=== PATIENT | male | born 1990 | race African-American/Black ===

== ENCOUNTER 2017-06-03 14:19 | Emergency (ER) | payer OTHER ==
[~2017-06-03] VITALS: Ht 182.9 cm; Wt 71.0 kg
[2017-06-03 14:21] VITALS: Ht 182.9 cm; Wt 71.0 kg
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
[2017-06-03] MEDS ORDERED: CIPR7.5D4 RIGHT EAR (16:52)
[2017-06-03] MEDS ORDERED: ELIM TOP (16:54)
[2017-06-03 17:25] VITALS: BP 120/61; PULSE 64; RESP 18; TEMP 98
== END 2017-06-03 17:26 | disposition home or self-care (01) ==
LOC: FTE 14:19
DX: H92.01 Otalgia, right ear (principal); R51 Headache
CPT/HCPCS: 70450; Z7502

== ENCOUNTER 2019-04-10 03:15 | Emergency (ER) | payer OTHER ==
[~2019-04-10] VITALS: Ht 175.3 cm; Wt 78.5 kg
[~2019-04-10 03:15] MED LIST: CIPR7.5D RIGHT EAR; ELIM TOP
[2019-04-10 03:17] VITALS: Ht 175.3 cm; Wt 78.5 kg
[2019-04-10] MEDS ORDERED: IBUPROFEN 800 MG TAB PO ONE (03:30)
[2019-04-10] MEDS ORDERED: IBUP800T48 PO (03:44)
--- NOTE | 2019-04-10 03:58 | ERD ---
ER Documentation Chief Complaint Chief Complaint bib ra from home for cp, recent substance abuse and psych issues HPI This is a 29-year-old male who is here for sharp left chest pain onset yesterday morning. He says the pain is sharp located at the left costosternal margin around rib #5 and 6. He says the pain is worse when he lays flat or if he tries lay on the left side. He said range of motion makes it worse. He has no difficulty breathing. Patient has a history of schizophrenia but is not having an exacerbation he has no psychotic symptoms. No palpitations dizziness near syncope or difficulty breathing ROS All systems reviewed and are negative except as per history of present illness. Medications Home Meds Active Scripts Ibuprofen* (Motrin*) 800 Mg Tab, 800 MG PO Q6H PRN for PAIN AND OR ELEVATED TEMP, #30 TAB Prov:CAROL ANN HATFIELD DO 04/10/19 Permethrin* (Elimite*) 5% Cr, 1 APPLIC TOP ONCE, #1 TUB Prov:ARABELLA CHAVEZ PA-C 06/03/17 Ciprofloxacin Hcl/Dexameth (Ciprodex Otic Suspension) 7.5 Ml Drops.susp, 4 DROP RIGHT EAR BID for 7 Days, EA Prov:ARABELLA CHAVEZ PA-C 06/03/17 Allergies Allergies: Coded Allergies: No Known Allergy (Unverified , 06/03/17) PMhx/Soc Medical and Surgical Hx: pt denies Medical Hx, pt denies Surgical Hx Hx Alcohol Use: No Hx Substance Use: Yes Hx Tobacco Use: No Smoking Status: Never smoker FmHx Family History: No coronary disease Physical Exam Vitals Vital Signs Date Temp Pulse Resp B/P (MAP) Pulse Ox O2 O2 Flow FiO2 Time Delivery Rate 04/10/19 98.6 99 19 126/65 100 Room Air 03:17 (85) 04/10/19 98.6 99 19 120/70 100 03:17 (87) Physical Exam Const: Well-developed, well-nourished Head: Atraumatic, normocephalic Eyes: Normal Conjunctiva, PERRLA, EOMI, normal sclera, no nystagmus ENT: Normal External Ears, Nose and Mouth, moist mucus membranes. Neck: Full range of motion. No meningismus, no lymphadenopathy. Resp: Clear to auscultation bilaterally, no wheezing, rhonchi, rales, reproducible palpable chest pain to the left costosternal margin ribs 5 6 Cardio: Regular rate and rhythm, no murmurs, S1 S2 present Abd: Soft, non tender x 4, non distended. Normal bowel sounds, no guarding or rebound, no pulsitile abdominal masses or bruits Skin: No petechiae or rashes, no ecchymosis , no maculopapular rash Back: No midline or flank tenderness Ext: No cyanosis, or edema, FROM x 4, normal inspection, neurovascularly intact x 4 Neur: Awake and alert, STR 5/5 x 4, sensation intact x 4, no focal findings, cerebellum intact Psych: Normal Mood and Affect Results 24 hrs Current Medications Medications Dose Sig/Shari Start Time Status Last (Trade) Ordered Route PRN Stop Time Admin Dose Reason Admin Ibuprofen 800 mg ONCE ONCE 04/10/19 DC 04/10/19 (Motrin) PO 03:30 04:14 04/10/19 03:31 Procedures/[place] [id number] Radiology Main Line: [phone] DIAGNOSTIC IMAGING REPORT Patient: CJ RAY : 1990 Age: 29 Sex: M MR #: [id number] DOS: 04/10/19 0329 Ordering MD: CAROL ANN HATFIELD DO Location: E/R Room/Bed: PROCEDURE: CHEST - 1 VIEW CLINICAL INDICATION: 29-year-old male with chest pain. TECHNIQUE: A single frontal AP portable view of the chest was performed. The images were reviewed on a PACS workstation. COMPARISON: None. FINDINGS: The radiograph is mildly rotated. The cardiomediastinal silhouette has a normal appearance. There is a shallow inspiration. There is no evidence for an infilt rate. The pulmonary vascularity is within normal limits. There is no evidence for pneumothorax or pneumomediastinum. The osseous structures are intact. IMPRESSION: No evidence for active cardiopulmonary disease. .Jeremy Morales MD, MD Date Time Electronically viewed and signed by .Jeremy Morales MD, MD on 04/10/2019 04:10 .M/ CC: CAROL ANN HATFIELD DO [phone] Patient feels much better at this time, and vital signs are normal, symptoms have improved. I did give strict instructions to return to the ED if symptoms continue or worsen, patient will otherwise follow-up with primary care physician. Patient understood instructions and agreed to plan. Disclaimer: Inadvertent spelling and grammatical errors are likely due to EHR/dictation software use and do not reflect on the overall quality of patient care. Also, please note that the electronic time recorded on this note does not necessarily reflect the actual time of the patient encounter. Patient's pain is clearly musculoskeletal in nature Departure Diagnosis: Primary Impression: Chest wall pain Condition: Stable Patient Instructions: Chest Wall Pain, Costochondritis Referrals: DOCTOR,NOT ON STAFF CAROL ANN HATFIELD DO Apr 10, 2019 03:58
[2019-04-10 05:00] VITALS: BP 101/76; PULSE 93; RESP 28
== END 2019-04-10 05:34 | disposition home or self-care (01) ==
LOC: E/R 03:15
DX: R07.89 Other chest pain (principal)
CPT/HCPCS: 71045; Z7502; Z7610